=== PATIENT | male | born 1970 | race Caucasian/White ===

== ENCOUNTER 2020-02-06 15:00 | Emergency (ER) | payer SELFPAY ==
[2020-02-06 15:20] VITALS: BP 196/94
--- NOTE | 2020-02-06 15:51 | ER Document Report ---
HPI - HPI Time Seen by Provider: 02/06/20 15:45 Context: Patient is a 49-year-old male who presents to the emergency department with a chief complaint of left lower jaw swelling and pain. Patient was seen by urgent care yesterday and was given a dose of IM antibiotics and was started on penic illin. Patient states that he felt well last night and when he woke up this morning he had some numbness in his left lip. Patient states that the numbness and swelling has actually gotten better from this morning. Patient wanted to be seen to make sure his swelling was okay. - ROS Systems Reviewed and Negative: Yes All other systems reviewed and negative - CONSTITUTIONAL Constitutional: REPORTS: Fever - EENT Notes: tooth pain; See HPI. - RESPIRATORY Respiratory: DENIES: Trouble Breathing, Coughing - GASTROINTESTINAL Gastrointestinal: DENIES: Abdominal Pain, Nausea, Patient vomiting - MUSCULOSKELETAL Musculoskeletal: DENIES: Extremity pain - DERM Skin Color: Normal Past Medical History - General Information source: Patient - Social History Smoking Status: Unknown if Ever Smoked Family History: Reviewed & Not Pertinent - Immunizations Hx Diphtheria, Pertussis, Tetanus Vaccination: Yes Vertical Provider Document - CONSTITUTIONAL Agree With Documented VS: Yes Exam Limitations: No Limitations General Appearance: No Apparent Distress - HEENT HEENT: Atraumatic, Normocephalic, PERRLA - NECK Neck: Normal Inspection - RESPIRATORY Respiratory: Breath Sounds Normal, No Respiratory Distress - CARDIOVASCULAR Cardiovascular: Regular Rate, Regular Rhythm Pulses: Normal: Radial - MUSCULOSKELETAL/EXTREMETIES Musculoskeletal/Extremeties: FROM - NEURO Level of Consciousness: Awake, Alert, Appropriate Motor/Sensory: No Motor Deficit, No Sensory Deficit - DERM Integumentary: Warm, Dry, No Rash Course - Re-evaluation Re-evalutation: 02/06/20 15:51 Advised the patient continue his penicillin. Advised him that if his symptoms are not better next 2 days to switch over to clindamycin. He is in agreement with this plan. Follow-up precautions were given. Verbal discharge instructions were given to the patient. They verbalized understanding. They are stable for discharge. - Vital Signs Vital signs: Temp Pulse Resp BP Pulse Ox 97.5 F 81 16 196/94 H 96 02/06/20 15:18 02/06/20 15:18 02/06/20 15:18 02/06/20 15:18 02/06/20 15:18 Discharge - Discharge Clinical Impression: Tooth ache, Facial swelling Condition: Stable Disposition: HOME, SELF-CARE Instructions: Clindamycin ([facility]), Toothache ([facility]) Additional Instructions: You have been seen in the emergency department for a toothache. You may take ibuprofen 600 mg and Tylenol 1000 mg every 6 hours as needed for the pain. Continue your penicillin. If you are not better tomorrow, switch over to clindamycin. Please take the antibiotics as prescribed, even if you start to feel better. If you develop a fever greater than 100.4 F, or have any symptoms that are worrisome to you, please return to the emergency department. Please follow-up with a dentist this week in regards to your visit. Prescriptions: Clindamycin HCl [Cleocin 150 mg Capsule] 300 mg PO Q6 7 Days #56 capsule Referrals: N[facility]ATNO [NO LOCAL MD] - Follow up as needed [facility] [Provider Group] - Follow up in 1 week
== END 2020-02-06 16:35 | disposition home or self-care (01) ==
LOC: ER 15:00
DX: K08.9 Disorder of teeth and supporting structures, unspecified (principal); R22.0 Localized swelling, mass and lump, head; R68.84 Jaw pain
CPT/HCPCS: 99283